=== PATIENT | female | born 1970 ===

== ENCOUNTER 2021-09-14 05:00 | Day surgery (SDC) | payer OTHER ==
[2021-09-14] MEDS ORDERED: NEXIUM 24HR20 MG PO (08:54)
[2021-09-14] MEDS ORDERED: CARAFATE1 GM/10 ML PO (08:55)
== END 2021-09-14 10:05 | disposition home or self-care (01) ==
LOC: AMB-ENDOS 05:00 → CIR.AMB 15:15
PROVIDERS: ATTEND Surgery
DX: K29.50 Unspecified chronic gastritis without bleeding (principal); K44.9 Diaphragmatic hernia without obstruction or gangrene; B96.81 Helicobacter pylori [H. pylori] as the cause of diseases classified elsewhere; K21.9 Gastro-esophageal reflux disease without esophagitis; Z20.822 Contact with and (suspected) exposure to COVID-19